=== PATIENT | male | born 1975 | race Caucasian/White ===

== ENCOUNTER → 2017-10-01 | Outpatient (CLI) | payer OTHER ==
[~2017-10-01] MED LIST: CELE1CAP4 PO; LISI10TA4 PO; MOTR200T44 PO; NEXI20CA PO; TYLE167L PO
--- NOTE | 2017-10-01 16:25 | REP ---
Clinical: Nephrolithiasis. Technique: Single supine view of the abdomen and pelvis. Findings: Evaluation is significantly limited for urinary tract is due to technique and overlying bowel gas. There is no evidence of bowel obstruction. Surgical clips are identified in the right lower quadrant. Calcifications in the pelvis likely represent phleboliths. Skeletal structures are intact. Impression: Significantly limited evaluation for underlying urinary tract calcifications. If the patient remains symptomatic consider noncontrast CT for further investigation. Signed by Keven Pulido MD 10/01/2017 04:17 P
== END ==
LOC: M SMT 15:43
PROVIDERS: ATTEND Urology
DX: N20.0 Calculus of kidney (principal)

== ENCOUNTER 2017-12-02 10:22 | Day surgery (SDC) | payer OTHER ==
[2017-12-02] MEDS ORDERED: fentaNYL 100 MCG/2 ML INJECTION (J3010) As Ordered (12:24)
[2017-12-02] MEDS ORDERED: LIDOCAINE 2% INJ 100 MG/5 ML SDV (FOR ANES.) As Ordered (12:39)
[2017-12-02] MEDS ORDERED: PROPOFOL 200 MG/20 ML VIAL As Ordered ×2 (12:39)
[2017-12-02] MEDS: NS 1,000 ML IV (13:06)
== END 2017-12-02 13:15 | disposition home or self-care (01) ==
LOC: M OPP 10:22
DX: R13.10 Dysphagia, unspecified (principal); K20.0 Eosinophilic esophagitis; I10 Essential (primary) hypertension; M19.90 Unspecified osteoarthritis, unspecified site; M54.5 Low back pain; Z87.442 Personal history of urinary calculi; Z98.890 Other specified postprocedural states; F17.220 Nicotine dependence, chewing tobacco, uncomplicated; Z79.899 Other long term (current) drug therapy; Z80.1 Family history of malignant neoplasm of trachea, bronchus and lung
CPT/HCPCS: 43249